=== PATIENT | female | born 1990 | race African-American/Black ===

== ENCOUNTER 2019-10-14 18:55 | Emergency (ER) | payer OTHER, BC ==
[2019-10-14] MEDS ORDERED: ACETAMINOPHEN 325 MG TABLET PO ONE (19:37)
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
[2019-10-14] MEDS ORDERED: METHOCARBAMOL 500 MG TABLET PO ONE (20:49)
[2019-10-14 21:01] VITALS: BP 125/78
== END 2019-10-14 21:01 | disposition home or self-care (01) ==
LOC: ER 18:55
DX: M54.2 Cervicalgia (principal); R51 Headache; V49.40XA Driver injured in collision with unspecified motor vehicles in traffic accident, initial encounter
CPT/HCPCS: 70450; 72125; 99284